=== PATIENT | female | born 1960 | race Caucasian/White ===

== ENCOUNTER 2024-01-31 09:00 | Emergency (ER) | payer BC, SELFPAY ==
--- NOTE | 2024-01-31 09:05 | ED.GENMED ---
History of Present Illness
General
Chief Complaint: CODE
Source: ambulance crew
Exam Limitations: clinical condition
Time Seen by Provider: 01/31/24 09:05
History of Present Illness
History of Present Illness:
This is a 63yo female who presents in cardiac arrest. EMS reports that the patient's reported that she had not been feeling well for couple days and had some back pain. Patient was on the toilet when she was found unresponsive by patient's
. The patient was in the bathroom for more than 10 minutes and CPR was not initiated until EMS arrived about 10 minutes later. There was at least 20 minutes before CPR was initiated. EMS found her in asystole. She did have some runs of
V-fib at times that were shocked. She was given 7 rounds of epinephrine and a dose of amiodarone. She has since been in asystole. EMS did have an intraosseous line and a César LT supraglottic device.
Past History
Past History
ED Past Medical History: Other (Unknown)
Phy Exam
Physical Exam
Physical Exam:
CONSTITUTIONAL Patient unresponsive. Morbidly obese
HEAD atraumatic, normocephalic.
EYES eyelids normal to inspection pupils nonresponsive
NECK Trachea midline
RESPIRATORY CHEST no spontaneous respiratory effort
CARDIOVASCULAR asystolic on telemetry
ABDOMEN no distention
UPPER EXTREMITY peripheral cyanosis noted
LOWER EXTREMITY peripheral cyanosis noted
NEURO GCS 3 T.
MDM/Problems Addressed
MDM/Problems Addressed:
Cardiopulmonary arrest, morbid obesity
*Manager Surgical Interpretation
Rate: other
Interpretation: abnormal
Rhythm: other (Asystole)
*Critical Care Note
Total Time (30-74mins, 75-104mins- exclusive of procedures): Not Applicable
Data Reviewed
Source: spouse and ambulance crew
Prescriptions/Medications Considered But Not Given:
Considered further dosing of epinephrine but patient has remained this is
Patient Management
Escalation/DeEscalation of care consider admission/obs:
Patient has been down for more than 1 hour with delayed CPR. She has no neurologic response. She remains asystolic. Efforts were terminated. now at bedside.
Update Note
Update Note:
1044 case d/w ME (Jennifer). released.
ED Attending Note
-
Portions of this chart may have been created with voice recognition software.� Occasional wrong word or��sound alike� substitutions may have occurred due to the inherent limitations of voice recognition software.
Discharge Plan
Departure
Patient Disposition:
Date of Disposition: 01/31/24
Time of Disposition: 09:05
Discharge Problem:
Cardiopulmonary arrest
Interventions
Interventions:
*Nursing Disposition Last Done: 01/31/24 09:05
Discharge Date and Time
Discharge Date/Time: 01/31/24 11:50
Print Language: SLOVAK
== END 2024-01-31 11:50 | disposition expired ==
LOC: EMR 09:00
PROVIDERS: EMERGENCY PHYSICIAN Emergency Medicine; FAMILY PHYSICIAN Internal Medicine
DX: I46.9 Cardiac arrest, cause unspecified (principal); I49.01 Ventricular fibrillation; E66.01 Morbid (severe) obesity due to excess calories
CPT/HCPCS: 99285